=== PATIENT | male | born 1995 ===

== ENCOUNTER 2020-11-26 05:45 | Emergency (ER) | payer SELFPAY ==
[~2020-11-26] VITALS: Ht 180.3 cm; Wt 72.7 kg
[2020-11-26] MEDS ORDERED: AMOXICILLIN 8751 TAB PO (05:56)
[2020-11-26 06:43] LABS: HIV 1/2 Antibodies Non-Reactive; HIV-1p24 Antigen Non-Reactive
[2020-11-26 16:54] LABS: HEPATITIS B SURFACE ANTIGEN Negative (Negative); HEPATITIS C VIRUS ANTIBODY Negative (Negative)
== END 2020-11-26 06:05 | disposition home or self-care (01) ==
LOC: COL.ER 05:45
PROVIDERS: Emergency Medicine
DX: S50.871A Other superficial bite of right forearm, initial encounter (principal); E10.9 Type 1 diabetes mellitus without complications; Y04.1XXA Assault by human bite, initial encounter; Y92.238 Other place in hospital as the place of occurrence of the external cause; Y99.0 Civilian activity done for income or pay